=== PATIENT | female | born 1995 | race Caucasian/White ===

== ENCOUNTER → 2018-08-29 08:57 | Outpatient (CLI) | payer OTHER, SELFPAY ==
[2018-08-29 10:27] LABS: Absolute Lymphocyte Count 2.88 X10^3/ul (0.83-4.51); Absolute Neutrophil Count 4.9 X10^3/uL (2.0-7.7); Basophil# 0.12 X10^3/uL; Basophil% 1.3 % (0-1); Eosinophils% 7.6 % (0-5); Hematocrit 42.8 % (37-47); Hemoglobin 14.2 g/dl (12.0-15.0); Lymphocyte # 2.88 X10^3/ul (4.0); Lymphocyte % 31.3 % (19-41); Mean Corp Hgb Conc 33.2 g/gl (32-36); Mean Corpuscular Hgb 30.3 pg (27.0-32.0); Mean Corpuscular Volume 91.3 fL (81-99); Mean Platelet Vol. 9.7 fl (6.2-12.0); Monocyte# 0.56 X10^3/uL; Monocyte% 6.1 % (0-10); Neutrophil # 4.93 X10^3/uL (2.7-7.7); Neutrophil % 53.6 % (47-70); Platelet Count 307 K/mm3 (150-450); RBC Distribution Width CV 13.1 % (11.6-14.6); RBC Distribution Width SD 43.3 fl (35.1-43.9); Red Blood Count 4.69 M/mm3 (4.2-5.4); White Blood Count 9.2 K/mm3 (4.4-11.0)
[2018-08-29 10:31] LABS: POSITIVE COUNT NO; POSITIVE DIFFERENTIAL NO; POSITIVE MORPHOLOGY NO
[2018-08-29 10:49] LABS: ALB/GLOB Ratio 1.4 RATIO (0.9-2.4); AST(SGOT) 13 U/L (15-37); Alanine Aminotransfer ALT/SGPT 21 U/L (13-56); Albumin, Serum 3.8 g/dL (3.2-5.0); Alkaline Phosphatase 68 U/L (45-117); Anion Gap 11 (5-15); BUN 11 mg/dL (7-18); BUN/Creat Ratio 14.3 RATIO (10-20); Calcium,Total 8.8 mg/dL (8.5-10.1); Chloride 110 mmol/L (98-107); Creatinine, Serum 0.77 mg/dL (0.55-1.02); EST Glomerular Filtration Rate 97 mL/min (>60); Est Glom Filt Rate - Afr Amer 118 mL/min (>60); Ferritin 30 ng/mL (8-252); Globulin 2.7 g/dL (2.2-4.2); Glucose 91 mg/dL (74-106); Potassium 4.4 mmol/L (3.5-5.1); Protein, Total 6.5 g/dL (6.4-8.2); Sodium Level 144 mmol/L (136-145)
== END ==
PROVIDERS: Family Provider Family Medicine; PCP Family Medicine; Visit Provider Family Medicine
DX: E03.9 Hypothyroidism, unspecified (principal)
CPT/HCPCS: 36415; 80053; 82728; 84439; 84443; 85025

== ENCOUNTER → 2021-04-18 10:58 | Outpatient (CLI) | payer BC, SELFPAY ==
[2021-04-18 12:08] LABS: Absolute Lymphocyte Count 3.49 X10^3/uL (0.83-4.51); Absolute Neutrophil Count 9.2 X10^3/uL (2.0-7.7); Basophil# 0.18 X10^3/uL; Basophil% 1.2 % (0-1); Eosinophil# 0.99 X10^3/uL; Eosinophils% 6.7 % (0-5); Hematocrit 42.7 % (37-47); Hemoglobin 14.4 g/dL (12.0-15.0); Lymphocyte # 3.49 X10^3/ul (0.83-4.51); Lymphocyte % 23.8 % (19-41); Mean Corp Hgb Conc 33.7 g/dL (32-36); Mean Corpuscular Hgb 31.5 pg (27.0-32.0); Mean Corpuscular Volume 93.4 fL (81-99); Mean Platelet Vol. 9.7 fl (6.2-12.0); Monocyte# 0.83 X10^3/uL; Monocyte% 5.7 % (0-10); NRBC Flagged by Analyzer 0 % (0-5); Neutrophil # 9.15 X10^3/uL (2.7-7.7); Neutrophil % 62.3 % (47-70); Platelet Count 339 K/mm3 (150-450); RBC Distribution Width CV 12.6 % (11.6-14.6); RBC Distribution Width SD 43.4 fl (35.1-43.9); Red Blood Count 4.57 M/mm3 (4.2-5.4); White Blood Count 14.7 K/mm3 (4.4-11.0)
[2021-04-18 12:49] LABS: Creatinine, Serum 0.79 mg/dL (0.55-1.02); EST Glomerular Filtration Rate 93 mL/min (>60); Est Glom Filt Rate - Afr Amer 112 mL/min (>60); T4 Free Direct 1.07 ng/dL (0.76-1.46); Thyroid Stim Hormone (TSH) 2.69 uIU/mL (0.358-3.74)
== END ==
PROVIDERS: PCP Family Medicine; Visit Provider Family Medicine
DX: E03.9 Hypothyroidism, unspecified (principal); F33.1 Major depressive disorder, recurrent, moderate
CPT/HCPCS: 36415; 82565; 84439; 84443; 85025

== ENCOUNTER → 2024-01-18 | Outpatient (CLI) | payer BC, SELFPAY ==
[2024-01-18 10:10] LABS: Absolute Lymphocyte Count 3.87 X10^3/uL (0.83-4.51); Absolute Neutrophil Count 3.9 X10^3/uL (2.0-7.7); Basophil# 0.16 X10^3/uL; Basophil% 1.7 % (0-1); Eosinophil# 0.68 X10^3/uL; Eosinophils% 7.4 % (0-5); Hematocrit 43.9 % (37-47); Hemoglobin 14.5 g/dL (12.0-15.0); Lymphocyte # 3.87 X10^3/ul (0.83-4.51); Lymphocyte % 42.2 % (19-41); Mean Corpuscular Hgb 30.7 pg (27.0-32.0); Mean Platelet Vol. 9.6 fl (6.2-12.0); Monocyte# 0.58 X10^3/uL; Monocyte% 6.3 % (0-10); NRBC Flagged by Analyzer 0 % (0-5); Neutrophil # 3.86 X10^3/uL (2.7-7.7); Neutrophil % 42.2 % (47-70); Platelet Count 347 K/mm3 (150-450); RBC Distribution Width CV 12.5 % (11.6-14.6); RBC Distribution Width SD 42.9 fl (35.1-43.9); Red Blood Count 4.72 M/mm3 (4.2-5.4); White Blood Count 9.2 K/mm3 (4.4-11.0)
[2024-01-18 10:54] LABS: Cholesterol 138 mg/dL (200); Creatinine, Serum 0.76 mg/dL (0.55-1.02); EST Glomerular Filtration Rate 96 mL/min (>60); Est Glom Filt Rate - Afr Amer 116 mL/min (>60); High Density Lipoprotein 51 mg/dL; T4 Free Direct 0.99 ng/dL (0.76-1.46); Thyroid Stim Hormone (TSH) 2.14 uIU/mL (0.358-3.74)
== END | disposition home or self-care (01) ==
LOC: MFPLAB 09:03
PROVIDERS: PCP Family Medicine; Visit Provider Family Medicine
DX: E03.9 Hypothyroidism, unspecified (principal); F17.200 Nicotine dependence, unspecified, uncomplicated
CPT/HCPCS: 36415; 82465; 82565; 83718; 84439; 84443; 85025

== ENCOUNTER → 2025-03-15 | Outpatient (CLI) | payer BC, SELFPAY ==
[2025-03-15 10:44] LABS: Hematocrit 40.7 % (37-47); Hemoglobin 13.9 g/dL (12.0-15.0); Immature Granulocytes Count 0.020 X10^3/uL (0.0-0.0); Mean Corp Hgb Conc 34.2 g/dL (32-36); Mean Corpuscular Volume 91.9 fL (81-99); Mean Platelet Vol. 9.6 fl (6.2-12.0); NRBC Flagged by Analyzer 0 % (0-5); Platelet Count 370 K/mm3 (150-450); RBC Distribution Width CV 12.6 % (11.6-14.6); RBC Distribution Width SD 43.3 fl (35.1-43.9); Red Blood Count 4.43 M/mm3 (4.2-5.4); White Blood Count 7.4 K/mm3 (4.4-11.0)
[2025-03-15 11:20] LABS: Free T3 2.7 pg/mL (2.18-3.98)
--- OUTSIDE RECORDS SUMMARY | 2025-03-15 12:01 | XMS RPT_ITS | CCD ---
Author Organization [facility] Care Team Providers Care Automotive Service Advisor Name Role Phone Merlin Gallego Primary Care Provider Merlin Gallego Attending Unavailable eMrlin Gallego Primary Care Unavailable Medications Completed/Discontinued Medications Medication Drug Class(es) Dates Sig (Normalized) Sig (Original) drospirenone / Ethinyl Estradiol (1 source) Progestin, Estrogen take 1 tablet by mouth once daily Drospirenone-Ethinyl Estradiol (LORYNA, 28,) 3-0.02 mg per tablet Take 1 tablet by mouth once daily. 0 Active Comment on above: Take 1 tablet by once daily. levothyroxine sodium 0.075 mg oral capsule (1 source) l-Thyroxine Levothyroxine 75 mcg cap Take 75 mcg by mouth. 0 Active Comment on above: Take 75 mcg by mouth . sertraline 50 mg oral tablet (1 source) Serotonin Reuptake Inhibitor take 1 tablet by mouth once daily sertraline (ZOLOFT) 50 mg tablet Take 50 mg by mouth once daily. 0 Active Comment on above: Take 50 mg by mouth once daily. Problems Active Problems Problem Classification Problem Date Documented Da te Episodic/Chronic Thyroid disorders (1 source) Hypothyroidism, unspecified; Translations: [Hypothyroidism, unspecified] Onset: 01-27-2024 Chronic Past or Other Problems Problem Classification Problem Date Documented Da te Episodic/Chronic Other and unspecified benign neoplasm (1 source) Benign phyllodes neoplasm of right breast; Translations: [Benign neoplasm of right breast] Onset: 10-05-2014 10-05-2014 Episodic Results Test Name Value Interpretation Reference Range Facil ity CBC W/Diff, Automatedon 05- Absolute Lymph 3.87 X10 3/uL Normal 0.83-4.51 [facility] Comment on above: Order Comment: Order Date: 01/06/24 Order Info: 018- - CBCD Performed By: #### L 501.1105, L501.4900, L506.0400, L501.6400, L501.9520, L100.0100 #### [facility] Laboratory [address] [place], [address] Absolute Neut 3.9 X10 3/uL Normal 2.0-7.7 [facility] Comment on above: Order Comment: Order Date: 01/06/24 Order Info: 018- - CBCD Performed By: #### L 501.1105, L501.4900, L506.0400, L501.6400, L501.9520, L100.0100 #### [facility] [address] [place], [address] Basophils/100 WBC (Bld) 1.7 % High 0-1 [facility] Comment on above: Order Comment: Order Date: 01/06/24 Order Info: 018- - CBCD Performed By: #### L 501.1105, L501.4900, L506.0400, L501.6400, L501.9520, L100.0100 #### [facility] [address] [place], [address] Eosinophils/100 WBC (Bld) 7.4 % High 0-5 [facility] Comment on above: Order Comment: Order Date: 01/06/24 Order Info: 018- - CBCD Performed By: #### L 501.1105, L501.4900, L506.0400, L501.6400, L501.9520, L100.0100 #### [facility] [address] [place], [address] Erythrocyte distribution width (RBC) [Ratio] 12.5 % Normal 11.6-14.6 [facility] Comment on above: Order Comment: Order Date: 01/06/24 Order Info: 018- - CBCD Performed By: #### L 501.1105, L501.4900, L506.0400, L501.6400, L501.9520, L100.0100 #### [facility] [address] [place], [address] Hematocrit (Bld) [Volume fraction] 43.9 % Normal 37-47 [facility] Comment on above: Order Comment: Order Date: 01/06/24 Order Info: 0184-1 - CBCD Performed By: #### L 501.1105, L501.4900, L506.0400, L501.6400, L501.9520, L100.0100 #### [facility] [address] [place], [address] Hemoglobin (Bld) [Mass/Vol] 14.5 g/dL Normal 12.0-15.0 [facility] Comment on above: Order Comment: Order Date: 01/06/24 Order Info: 0184-1 - CBCD Performed By: #### L 501.1105, L501.4900, L506.0400, L501.6400, L501.9520, L100.0100 #### [facility] [address] [place], [address] IG% 0.200 Normal 0.0-0.9 [facility] Comment on above: Order Comment: Order Date: 01/06/24 Order Info: 0184-1 - CBCD Result Comment: IG% - Immature Granulocytes (promyelocytes, myelocytes and metamyelocytes) > 1% indicates that a LEFT SHIFT is Present. Performed By: #### L 501.1105, L501.4900, L506.0400, L501.6400, L501.9520, L100.0100 #### [facility] [address] [place], [address] Lymphocytes/100 WBC (Bld) 42.2 % High 19-41 [facility] Comment on above: Order Comment: Order Date: 01/06/24 Order Info: 0184-1 - CBCD Performed By: #### L 501.1105, L501.4900, L506.0400, L501.6400, L501.9520, L100.0100 #### [facility] [address] [place], [address] MCH (RBC) [Entitic mass] 30.7 pg Normal 27.0-32.0 [facility] Comment on above: Order Comment: Order Date: 01/06/24 Order Info: 0184-1 - CBCD Performed By: #### L 501.1105, L501.4900, L506.0400, L501.6400, L501.9520, L100.0100 #### [facility] [address] [place], [address] MCHC (RBC) [Mass/Vol] 33.0 g/dL Normal 32-36 [facility] Comment on above: Order Comment: Order Date: 01/06/24 Order Info: 0184-1 - CBCD Performed By: #### L 501.1105, L501.4900, L506.0400, L501.6400, L501.9520, L100.0100 #### [facility] [address] [place], [address] MCV (RBC) [Entitic vol] 93.0 fL Normal 81-99 [facility] Comment on above: Order Comment: Order Date: 01/06/24 Order Info: 0184-1 - CBCD Performed By: #### L 501.1105, L501.4900, L506.0400, L501.6400, L501.9520, L100.0100 #### [facility] [address] [place], [address] Monocytes/100 WBC (Bld) 6.3 % Normal 0-10 [facility] Comment on above: Order Comment: Order Date: 01/06/24 Order Info: 0184-1 - CBCD Performed By: #### L 501.1105, L501.4900, L506.0400, L501.6400, L501.9520, L100.0100 #### [facility] [address] [place], [address] Neutrophils/100 WBC (Bld) 42.2 % Low 47-70 [facility] Comment on above: Order Comment: Order Date: 01/06/24 Order Info: 0184-1 - CBCD Performed By: #### L 501.1105, L501.4900, L506.0400, L501.6400, L501.9520, L100.0100 #### [facility] [address] [place], [address] Nucleated RBC (Bld) [#/Vol] 0 10*3/uL Normal 0-5 [facility] Comment on above: Order Comment: Order Date: 01/06/24 Order Info: 0184- - CBCD Performed By: #### L 501.1105, L501.4900, L506.0400, L501.6400, L501.9520, L100.0100 #### [facility] [address] [place], [address] Platelet mean volume (Bld) [Entitic vol] 9.6 fL Normal 6.2-12.0 [facility] Comment on above: Order Comment: Order Date: 01/06/24 Order Info: 0184-1 - CBCD Performed By: #### L 501.1105, L501.4900, L506.0400, L501.6400, L501.9520, L100.0100 #### [facility] [address] [place], [address] Platelets (Bld) [#/Vol] 347 10*3/uL Normal 150-450 [facility] Comment on above: Order Comment: Order Date: 01/06/24 Order Info: 0184-1 - CBCD Performed By: #### L 501.1105, L501.4900, L506.0400, L501.6400, L501.9520, L100.0100 #### [facility] [address] [place], [address] RBC (Bld) [#/Vol] 4.72 10*6/uL Normal 4.2-5.4 [facility] Comment on above: Order Comment: Order Date: 01/06/24 Order Info: 018- - CBCD Performed By: #### L 501.1105, L501.4900, L506.0400, L501.6400, L501.9520, L100.0100 #### [facility] [address] [place], [address] RDW SD 42.9 fl Normal 35.1-43.9 [facility] Comment on above: Order Comment: Order Date: 01/06/24 Order Info: 01811-28 - CBCD Performed By: #### L 501.1105, L501.4900, L506.0400, L501.6400, L501.9520, L100.0100 #### [facility] [address] [place], [address] WBC (Bld) [#/Vol] 9.2 10*3/uL Normal 4.4-11.0 [facility] Comment on above: Order Comment: Order Date: 01/06/24 Order Info: 0184-1 - CBCD Performed By: #### L 501.1105, L501.4900, L506.0400, L501.6400, L501.9520, L100.0100 #### [facility] [address] [place], [address] Cholesterolon 01-18-2024 Cholesterol [Mass/Vol] 138 mg/dL Normal 200 [facility] Comment on above: Order Comment: Order Date: 01/06/24 Order Info: 0145-1 - CRE Order Info: 2092-3 - CHOL Order Info: 9 - HDL Order Info: 3015-3 - TSH Order Info: 3024-7 - T4F Result Comment: <200 mg/dL Desirable 200-240 mg/dL Borderline >240 mg/dL High Risk Performed By: #### L 501.1105, L501.4900, L506.0400, L501.6400, L501.9520, L100.0100 #### [facility] [address] [place], [address] High Density Lipoproteinon 0 01-18-2024 Cholesterol in HDL [Mass/Vol] 51 mg/dL Normal [facility] Comment on above: Order Comment: Order Date: 01/06/24 Order Info: 144-08 - CRE Order Info: 2092-10 - CHOL Order Info: 2085-04 - HDL Order Info: 3015-10 - TSH Order Info: 3024-02 - T4F Result Comment: The drugs N-Acetylcysteine and Metamizole may falsely depress this assay. Reference Range HDL <40 mg/dL Low HDL Cholesterol HDL >or= 60 mg/dL High HDL Cholesterol Performed By: #### L 501.1105, L501.4900, L506.0400, L501.6400, L501.9520, L100.0100 #### [facility] [address] [place], [address] Serum Creatinine AND GFRon 0 01-18-2024 Creatinine [Mass/Vol] 0.76 mg/dL Normal 0.55-1.02 [facility] Comment on above: Order Comment: Order Date: 01/06/24 Order Info: 144-08 - CRE Order Info: 2092-10 - CHOL Order Info: 2085-04 - HDL Order Info: 3015-10 - TSH Order Info: 3024-02 - T4F Result Comment: The validity of the calculated GFR GFRAA in patients over 70 years has not been determined. Clinical correlation is essential. Performed By: #### L 501.1105, L501.4900, L506.0400, L501.6400, L501.9520, L100.0100 #### [facility] [address] [place], [address] EST GFR - AA 116 mL/min Normal >60 [facility] Comment on above: Order Comment: Order Date: 01/06/24 Order Info: 144- - CRE Order Info: 2092-10 - CHOL Order Info: 2085-04 - HDL Order Info: 3015-10 - TSH Order Info: 7 - T4F Result Comment: Afri can [place] GFR Calc Performed By: #### L 501.1105, L501.4900, L506.0400, L501.6400, L501.9520, L100.0100 #### [facility] [address] [place], [address] GFR/1.73 sq M.predicted among non-blacks MDRD (S/P/Bld) [Vol rate/Area] 96 mL/min/{1.73_m2} Normal >60 [facility] Comment on above: Order Comment: Order Date: 01/06/24 Order Info: 144-08 - CRE Order Info: 2092-10 - CHOL Order Info: 2085-04 - HDL Order Info: 3015-10 - TSH Order Info: 3024-02 - T4F Result Comment: Non- GFR Calc Performed By: #### L 501.1105, L501.4900, L506.0400, L501.6400, L501.9520, L100.0100 #### [facility] [address] [place], [place], [address] T4 Free Directon 01-18-2024 T4 FREE DIRECT 0.99 ng/dL Normal 0.76-1.46 [facility] Comment on above: Order Comment: Order Date: 01/06/24 Order Info: 144-08 - CRE Order Info: 2092-10 - CHOL Order Info: 2085-04 - HDL Order Info: 3015-10 - TSH Order Info: 7 - T4F Performed By: #### L 501.1105, L501.4900, L506.0400, L501.6400, L501.9520, L100.0100 #### [facility] Laboratory [address] [place], [place], [address] Thyroid Stim Hormone (TSH)on 01-18-2024 TSH 2.14 uIU/mL Normal 0.358-3.74 [facility] Comment on above: Order Comment: Order Date: 01/06/24 Order Info: 0145-1 - CRE Order Info: 2092-10 - CHOL Order Info: 2085-04 - HDL Order Info: 3015-10 - TSH Order Info: 3027 - T4F Performed By: #### L 501.1105, L501.4900, L506.0400, L501.6400, L501.9520, L100.0100 #### [facility] [address] [place], [place], [address] Encounters Encounter Date Encounter Type Care Provider Facility Start: 01-18-2024 End: 01-18-2024 ambulatory [facility] Facility:[facility] Start: 10-08-2014 End: 10-08-2014 Telephone encounter Live Braun MD Work Phone: General Surgery Comment on above: Information (procedu re dates) Plan of Treatment Date Care Activity Detail Author Start: 04-30-2021 Influenza vaccination INFLUENZA (Sea son Ended) [facility] Start: 2014 PAP TESTING PAP TESTING [facility] Start: 2012 Urine microalbumin profile DTAP,TDAP ,TD (1 - Tdap) [facility] Start: 2011 HEPATITIS C SCREENING HEPATITIS C SC REENING [facility] Start: 2011 HIV SCREENING HIV SCREENING [facility] Start: 2005 Adult depression scr ning assessment DEPRESSION SCREENING [facility] Payers Date Payer Category Payer Self-pay 2024 Unknown [id number] 2014 Private Health Insurance [facility] PPO CHOICE [id number] 2014-2019 PPO [id number] Unknown [id number] Social History Date Type Detail Facility Start: 09-05-2014 Tobacco smoking stat us NHIS Current every day smoker [facility] History of tobacco use Cigarette Smoker [facility] Start: 09-05-2014 Cigarettes smoked cu rrent (pack per day) - Reported [facility] Start: 09-05-2014 Alcohol intake 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 It was requested that PAT be scheduled for 10-26-2014 afternoon, as pt lives in [place], [place]. Shefali George Ma Per the October surgery schedule, 10-31-2014 would be an available date. I left a message for pt mom to call our office back to confirm if this date is agreeable prior to my scheduling. In message left, it was stated that procedure would not be scheduled for this date until office hears back. Shefali George Ma Received a message from pt mom, wishing to proceed with scheduling of procedure. I called pt and informed her that I was in the process of clarifying if procedure was to be office procedure vs OR procedure; that office would call her to proceed with scheduling once this information was received. Shefali George Ma documented in this encounter [facility] Summary Purpose Family History No Family History Records Found Advance Directives No Advanced Directives Records Found Additional Source Comments Source Comments (unrecognize d section and content) In the event this informatio n is protected by the Federal Confidentiality of Alcohol and Drug Abuse Patient Records regulations: The Federal rules restrict any use of the information to criminally investigate or prosecute any alcohol or drug abuse patient.[facility] Reason for Visit (unrecogniz ed section and content) Reason Onset Date Comments Information 10/08/2014 procedure dates INFORMATION SOURCE (unrecogn ized section and content) DATE CREATED AUTHOR 01/28/2024 [facility] FOR RECORDS PERTAINING TO PATIENTS WHO ARE OR HAVE BEEN ENROLLED IN A CHEMICAL DEPENDENCY/SUBSTANCEABUSE PROGRAM, SOME INFORMATION MAY BE OMITTED. This clinical summary was aggregated from multiple sources. Caution should be exercised in using it in the provision of clinical care. This summary normalizes information from multiple sources, and as a consequence, information in this document may materially change the coding, format and clinical context of patient data. In addition, data may be omitted in some cases. CLINICAL DECISIONS SHOULD BE BASED ON THE PRIMARY CLINICAL RECORDS. [facility] [employer] [facility]. provides no warranty or guarantee of the accuracy or completeness of information in this document.
== END | disposition home or self-care (01) ==
LOC: MFPLAB 09:08
PROVIDERS: PCP Family Medicine; Referring Provider Family Medicine; Visit Provider Family Medicine
DX: E03.9 Hypothyroidism, unspecified (principal); F17.200 Nicotine dependence, unspecified, uncomplicated
CPT/HCPCS: 36415; 84439; 84443; 84481; 85025